=== PATIENT | male | born 1945 | race Asian ===

== ENCOUNTER 2023-01-17 21:24 | Inpatient (IN) | payer OTHER, MEDICAID ==
[~2023-01-17] VITALS: Ht 167.6 cm; Wt 56.2 kg
[2023-01-17 22:03] VITALS: BP_SYST 129
--- NOTE | 2023-01-17 22:12 | NUR ---
Pt placed in bed 5
--- NOTE | 2023-01-17 22:12 | NUR ---
LATANYA Ochoa at bedside examining patient.
[2023-01-17] MEDS ORDERED: NACL 0.9% 2,000 ML IV ONE (22:15)
[2023-01-17] MEDS ORDERED: PANTOPRAZOLE SODIUM 40 MG/VIAL (PROTONIX) IVP ONE (22:15)
--- NOTE | 2023-01-17 22:20 | NUR ---
DARWIN from [facility] C/O coffee ground emesis. Pt nonverbal but responds to stimuli VSS Able to make needs known Will continue to monitor
[2023-01-17 23:05] LABS: BASOPHILS % (AUTO) 0.1 % (0.0-2.0); HEMATOCRIT 40.1 % (36-54); HEMOGLOBIN 13.5 g/dL (14.0-18.0); LYMPHOCYTES # (AUTO) 0.7 K/uL (1.0-5.5); LYMPHOCYTES % (AUTO) 8.1 % (20.5-51.5); MEAN CORPUSCULAR HEMOGLOBIN 30 pg (27-31); MEAN CORPUSCULAR HGB CONC 34 % (32-36); MEAN CORPUSCULAR VOLUME 90 fL (79.0-98.0); MONOCYTES # (AUTO) 0.3 K/uL (0.0-1.0); NEUTROPHILS % (AUTO) 87.8 % (40.0-70.0); PLATELET COUNT (AUTO) 242 K/uL (130-430); RED BLOOD CELL COUNT(AUTO) 4.43 MIL/uL (4.2-6.2); RED CELL DISTRIBUTION WIDTH 14.3 % (9.0-15.0)
[2023-01-17] MEDS: PANTOPRAZOLE SODIUM 40 MG in NS 50 ML IV SCH (23:15)
[2023-01-17] MEDS: D5/0.45 NS 1,000 ML IV SCH (23:15)
[2023-01-17 23:17] LABS: ANION GAP 10 (5-15); CALCIUM 8.6 mg/dL (8.4-11.0); CHLORIDE 100 mmol/L (98-107); CREATININE 1.12 mg/dL (0.55-1.30); GLUCOSE 238 mg/dL (70-99); UREA NITROGEN, BLOOD 33 mg/dL (8-21)
[2023-01-17 23:22] LABS: ALANINE AMINOTRANSFERASE 30 U/L (12-78); ALBUMIN 3.2 g/dL (3.4-4.8); ASPARTATE AMINOTRANSFERASE 19 U/L (10-37); TOTAL BILIRUBIN 0.5 mg/dL (0.0-1.0)
--- NOTE | 2023-01-18 01:20 | NUR ---
Pt resting comfortably in bed Pt nonverbal but resposive to stimuli VSS Able to make needs known Will continue to monitor
--- NOTE | 2023-01-18 02:47 | NUR ---
Admit bed requested Patient will be admitted to care of . Admitted to TELEMETRY unit. Diagnosis UPPER GI BLEED Inpatient (Yes or No) YES Observation (Yes or No) NO Orientation concerns or request close to nursing station (Yes or No) NO Covid Status NEGATIVE On vent or bipap NO Isolation requirements NO Needs a sitter NO From Home (Yes or if No enter name of facility) YES Requires Dialysis (Yes or No) NO Med Rec Completed (Yes of No) YES
[2023-01-18 02:58] LABS: BILIRUBIN,URINE NEGATIVE (NEGATIVE); BLOOD, URINE NEGATIVE (NEGATIVE); CLARITY/URINE CLEAR (CLEAR); COLOR,URINE YELLOW (YELLOW); GLUCOSE,URINE 1+ (NEGATIVE); KETONES,URINE NEGATIVE (NEGATIVE); LEUKOCYTE ESTERASE ,URINE NEGATIVE (NEGATIVE); NITRITE, URINE NEGATIVE (NEGATIVE); PROTEIN URINE 1+ (NEGATIVE); UROBILINOGEN,URINE 0.2 (0.2-1.0)
[2023-01-18] MEDS ORDERED: LIP40 PO (02:59)
[2023-01-18] MEDS ORDERED: DOCU-144 PO (02:59)
[2023-01-18] MEDS ORDERED: ASPI-1393 PO (02:59)
[2023-01-18] MEDS ORDERED: MOM PO (02:59)
[2023-01-18] MEDS ORDERED: AMLO5TAB4 PO (02:59)
[2023-01-18] MEDS ORDERED: INSU100I26 SQ (02:59)
[2023-01-18] MEDS ORDERED: SSNOVOLOG SUBCUT (02:59)
[2023-01-18] MEDS ORDERED: ACET325T PO (02:59)
[2023-01-18 03:06] LABS: BACTERIA,URINE None Seen /HPF (None Seen); RBC,URINE 0-3 /HPF (0-3); WBC,URINE 0-3 /HPF (0-3)
[2023-01-18] MEDS ORDERED: NACL 0.9% 1,000 ML IV ONE (03:30)
[2023-01-18] MEDS ORDERED: VANCOMYCIN HCL 1 GM/NS PREMIX 250 ML IV ONE (03:30)
[2023-01-18] MEDS ORDERED: MEROPENEM 1 GM in NS 100 ML IV ONE (03:30)
[2023-01-18] MEDS ORDERED: VANCOMYCIN HCL 1000 MG/VIAL IV ONE (03:41)
[2023-01-18 04:40] VITALS: BP_SYST 142
[2023-01-18] MEDS ORDERED: PANTOPRAZOLE SODIUM 40 MG/VIAL (PROTONIX) ONE ×2 (05:04)
--- NOTE | 2023-01-18 05:05 | NUR ---
Endorsed Mello to Jeff ZHOU. Notified House supervsor
--- NOTE | 2023-01-18 05:06 | NUR ---
Patient will be admitted to tele unit. Will go to room 118A. Belongings list completed. Complete and up to date summary report printed. SBAR report to be given at bedside with opportunity for questions.
[2023-01-18] MEDS: PANTOPRAZOLE SODIUM 40 MG in NS 50 ML IV SCH ×4 (05:12→21:09)
[2023-01-18 06:26] VITALS: BP_SYST 142
[2023-01-18] MEDS ORDERED: D5W 1,000 ML IV PRN ×2 (07:30→15:30)
[2023-01-18] MEDS ORDERED: DEXTROSE 50% JECT 50 ML DISP.SYRIN IVP PRN ×2 (07:30→15:30)
[2023-01-18] MEDS ORDERED: GLUCOSE (DEXTROSE) ORAL GEL -Adults PO PRN ×2 (07:30→15:30)
[2023-01-18 08:00] VITALS: BP_SYST 139
[2023-01-18 10:38] LABS: BASOPHILS % (AUTO) 0.2 % (0.0-2.0); EOSINOPHILS % (AUTO) 0.1 % (0.0-4.0); HEMOGLOBIN 11.4 g/dL (14.0-18.0); LYMPHOCYTES # (AUTO) 1.5 K/uL (1.0-5.5); MEAN CORPUSCULAR HEMOGLOBIN 30 pg (27-31); MEAN CORPUSCULAR HGB CONC 33 % (32-36); MEAN CORPUSCULAR VOLUME 92 fL (79.0-98.0); MONOCYTES # (AUTO) 0.4 K/uL (0.0-1.0); MONOCYTES % (AUTO) 3.8 % (1.7-9.3); NEUTROPHILS # (AUTO) 8.1 K/uL (1.8-7.7); NEUTROPHILS % (AUTO) 80.9 % (40.0-70.0); PLATELET COUNT (AUTO) 193 K/uL (130-430); RED BLOOD CELL COUNT(AUTO) 3.79 MIL/uL (4.2-6.2); RED CELL DISTRIBUTION WIDTH 14.6 % (9.0-15.0)
--- NOTE | 2023-01-18 10:45 | NUR ---
Contacted Dr. Rodriguez and made aware regarding lactic acid 4.0. Waiting for new orders.
[2023-01-18 11:07] LABS: ANION GAP 8 (5-15); CALCIUM 7.7 mg/dL (8.4-11.0); CHLORIDE 106 mmol/L (98-107); GLUCOSE 234 mg/dL (70-99); UREA NITROGEN, BLOOD 23 mg/dL (8-21)
[2023-01-18 11:25] VITALS: BP_SYST 141
[2023-01-18] MEDS: D5/0.45 NS 1,000 ML IV SCH (11:45)
--- NOTE | 2023-01-18 11:55 | NUR ---
Received call from Dr. Michael MD acknowledged lactic acid 4.0 and gave order for Maxipime 1g Q12HRS. Order noted and carried out.
--- NOTE | 2023-01-18 14:05 | NUR ---
Patient's decision maker is the [employer] Public Guardian's Office [phone]. His public Guardian is Zaid Lockett [phone]. He will sign consents the patient needs. He is available Saturday-Saturday 8AM-5 PM.
[2023-01-18] MEDS ORDERED: ACETAMINOPHEN 325 MG TABLET PO PRN (15:30)
[2023-01-18] MEDS ORDERED: MILK OF MAGNESIA 30 ML UDC PO PRN (15:30)
[2023-01-18] MEDS ORDERED: INSULIN LISPRO SLIDING SCALE 100 UNITS/ML, 3 ML VIAL (humaLOG) SUBCUT PRN (15:30)
[2023-01-18 16:58] VITALS: BP_SYST 140
[2023-01-18] MEDS: PIPERACILLIN/TAZO 3.375/DEX-IS 50 ML IV SCH (17:09)
--- NOTE | 2023-01-18 19:24 | NUR ---
CONSULTATION PAGED/CALLED Reason for Consultation: LOW 02 Person Who was Notified: YAMEL Consulting Physician: DR. MUSA Physician President Specialty: PULMONARY Ordering Physician:
[2023-01-18 20:00] VITALS: BP_SYST 134
--- NOTE | 2023-01-18 20:00 | NUR ---
Met pt and pt's son( 15 years old) at bedside. Pt able to communicate with son. Pt speaks Moldovan.Denied any distress except nostril itching from O2 nasal cannula. O2 sat 98-99% with O2 4 L. Decreased O2 to 3l by RT.
[2023-01-18] MEDS: IPRATROPIUM BROM 0.5 MG/2.5 ML VIAL.NEB (ATROVENT) INH SCH (20:11)
[2023-01-18] MEDS: ALBUTEROL SULFATE 0.083% 2.5 MG/3 ML VIAL.NEB INH SCH (20:11)
[2023-01-18] MEDS ORDERED: CEFEPIME 1 GM in D5W 50 ML IV SCH (21:00)
[2023-01-18] MEDS: INSULIN REGULAR, HUMAN 100 UNITS/ML, 3 ML VIAL (humuLIN R) SUBCUT PRN (21:14)
[2023-01-19 00:17] VITALS: BP_SYST 128
[2023-01-19] MEDS: PIPERACILLIN/TAZO 3.375/DEX-IS 50 ML IV SCH ×4 (00:30→18:23)
[2023-01-19] MEDS: PANTOPRAZOLE SODIUM 40 MG in NS 50 ML IV SCH ×2 (01:20→06:03)
[2023-01-19] MEDS: D5/0.45 NS 1,000 ML IV SCH ×2 (03:31→18:03)
--- NOTE | 2023-01-19 05:49 | NUR ---
PT REMAINS STABLE. NOTICED OFF AND ON NONPRODUCTIVE COUGH. NO S/SX OF UGI BLEEDING. HAD 1 X BM- YELLOW/BROWN PASTY STOOL. NO S/SX OF BLEEDING. ON PROTONIX DRIP AT 10 ML/HR AND D51/2NS AT 80 ML/HR. ON O2 3L VIA NC.GIVEN ZOSYN IVPB EVERY 6 HR. SKIN DRY AND INTACT. NEED SPUTUM SPECIMEN. TELE- SR.
[2023-01-19] MEDS: IPRATROPIUM BROM 0.5 MG/2.5 ML VIAL.NEB (ATROVENT) INH SCH ×4 (07:13→20:40)
[2023-01-19] MEDS: ALBUTEROL SULFATE 0.083% 2.5 MG/3 ML VIAL.NEB INH SCH ×4 (07:14→20:40)
[2023-01-19 08:10] LABS: BASOPHILS % (AUTO) 0.4 % (0.0-2.0); EOSINOPHILS # (AUTO) 0.4 K/uL (0.0-0.4); EOSINOPHILS % (AUTO) 5.5 % (0.0-4.0); HEMATOCRIT 32.4 % (36-54); HEMOGLOBIN 10.8 g/dL (14.0-18.0); LYMPHOCYTES # (AUTO) 1.5 K/uL (1.0-5.5); MEAN CORPUSCULAR HEMOGLOBIN 30 pg (27-31); MEAN CORPUSCULAR HGB CONC 33 % (32-36); MEAN CORPUSCULAR VOLUME 90 fL (79.0-98.0); MONOCYTES # (AUTO) 0.5 K/uL (0.0-1.0); MONOCYTES % (AUTO) 7.4 % (1.7-9.3); NEUTROPHILS % (AUTO) 62.7 % (40.0-70.0); PLATELET COUNT (AUTO) 187 K/uL (130-430)
[2023-01-19 08:37] LABS: WHITE BLOOD COUNT (AUTO) 6.4 K/uL (4.8-10.8)
[2023-01-19] MEDS ORDERED: PANTOPRAZOLE SODIUM 40 MG/VIAL (PROTONIX) ONE (11:37)
[2023-01-19 14:20] LABS: ALANINE AMINOTRANSFERASE 27 U/L (12-78); ALBUMIN 2.4 g/dL (3.4-4.8); ANION GAP 8 (5-15); ASPARTATE AMINOTRANSFERASE 19 U/L (10-37); CALCIUM 7.7 mg/dL (8.4-11.0); CHLORIDE 103 mmol/L (98-107); CREATININE 0.81 mg/dL (0.55-1.30); GLUCOSE 149 mg/dL (70-99); TOTAL BILIRUBIN 0.4 mg/dL (0.0-1.0); UREA NITROGEN, BLOOD 11 mg/dL (8-21)
[2023-01-19] MEDS: DOCUSATE SODIUM 100 MG CAPSULE PO SCH (17:56)
[2023-01-19] MEDS: ATORVASTATIN 20 MG TABLET PO SCH (17:57)
[2023-01-19] MEDS: amLODIPine BESYLATE 5 MG TABLET PO SCH (17:59)
[2023-01-19 20:00] VITALS: BP_SYST 148
[2023-01-19] MEDS: PANTOPRAZOLE SODIUM 40 MG/VIAL (PROTONIX) IVP SCH (21:35)
[2023-01-20] VITALS: BP_SYST 132
[2023-01-20] MEDS: D5/0.45 NS 1,000 ML IV SCH ×2 (01:15→13:10)
[2023-01-20] MEDS: PIPERACILLIN/TAZO 3.375/DEX-IS 50 ML IV SCH ×4 (06:03→16:54)
[2023-01-20 07:29] LABS: BASOPHILS % (AUTO) 0.5 % (0.0-2.0); EOSINOPHILS # (AUTO) 0.4 K/uL (0.0-0.4); EOSINOPHILS % (AUTO) 6.9 % (0.0-4.0); HEMATOCRIT 30.9 % (36-54); HEMOGLOBIN 10.6 g/dL (14.0-18.0); LYMPHOCYTES # (AUTO) 1.3 K/uL (1.0-5.5); LYMPHOCYTES % (AUTO) 24.5 % (20.5-51.5); MEAN CORPUSCULAR HEMOGLOBIN 31 pg (27-31); MEAN CORPUSCULAR HGB CONC 34 % (32-36); MEAN CORPUSCULAR VOLUME 89 fL (79.0-98.0); MONOCYTES # (AUTO) 0.5 K/uL (0.0-1.0); MONOCYTES % (AUTO) 9.8 % (1.7-9.3); NEUTROPHILS # (AUTO) 3.1 K/uL (1.8-7.7); NEUTROPHILS % (AUTO) 58.3 % (40.0-70.0); PLATELET COUNT (AUTO) 208 K/uL (130-430); RED BLOOD CELL COUNT(AUTO) 3.47 MIL/uL (4.2-6.2); WHITE BLOOD COUNT (AUTO) 5.4 K/uL (4.8-10.8)
[2023-01-20] MEDS: ALBUTEROL SULFATE 0.083% 2.5 MG/3 ML VIAL.NEB INH SCH ×2 (07:32→11:16)
[2023-01-20] MEDS: IPRATROPIUM BROM 0.5 MG/2.5 ML VIAL.NEB (ATROVENT) INH SCH ×2 (07:32→11:16)
--- NOTE | 2023-01-20 07:40 | NUR ---
Closing Pt is resting in bed comfortably no s/s of any distress, no S/S of any SOB, Starks catheter patent and intact draining chris urine, draining via gravity, encourage pt to use call light for any assistance, call light within reach, bed at lowest position for safety.
[2023-01-20 08:00] VITALS: BP_SYST 129
[2023-01-20 09:02] LABS: ALANINE AMINOTRANSFERASE 27 U/L (12-78); ALBUMIN 2.5 g/dL (3.4-4.8); ANION GAP 11 (5-15); ASPARTATE AMINOTRANSFERASE 20 U/L (10-37); CALCIUM 8.2 mg/dL (8.4-11.0); CHLORIDE 102 mmol/L (98-107); CREATININE 0.91 mg/dL (0.55-1.30); GLUCOSE 150 mg/dL (70-99); TOTAL BILIRUBIN 0.5 mg/dL (0.0-1.0); UREA NITROGEN, BLOOD 6 mg/dL (8-21)
[2023-01-20] MEDS: ATORVASTATIN 20 MG TABLET PO SCH (09:55)
[2023-01-20] MEDS: DOCUSATE SODIUM 100 MG CAPSULE PO SCH (09:55)
[2023-01-20] MEDS: amLODIPine BESYLATE 5 MG TABLET PO SCH (09:55)
[2023-01-20] MEDS: PANTOPRAZOLE SODIUM 40 MG/VIAL (PROTONIX) IVP SCH ×2 (09:56→21:58)
--- NOTE | 2023-01-20 11:29 | NUR ---
Attempted to get sputum, but patient unable to spit enough at this point. made aware.
[2023-01-20 12:00] VITALS: BP_SYST 132
[2023-01-20] MEDS ORDERED: POTASSIUM CHLORIDE 40 MEQ in NS 250 ML IV ONE (12:00)
[2023-01-20] MEDS: INSULIN REGULAR, HUMAN 100 UNITS/ML, 3 ML VIAL (humuLIN R) SUBCUT PRN ×2 (12:32→17:02)
[2023-01-20 16:00] VITALS: BP_SYST 135
--- NOTE | 2023-01-20 17:45 | NUR ---
Dr. Rodriguez made aware of patient having one episode of elevated HR 180 bpm. Patient current HR is 89 BPM at the moment. Will continue to monitor.
--- NOTE | 2023-01-20 19:05 | NUR ---
Report given to night court magistrate RN for continuity of care. Patient in stable condition. No distress noted.
[2023-01-20 20:00] VITALS: BP_SYST 146
[2023-01-21] VITALS: BP_SYST 140
[2023-01-21] MEDS: PIPERACILLIN/TAZO 3.375/DEX-IS 50 ML IV SCH ×4 (01:14→18:01)
[2023-01-21 06:24] LABS: BASOPHILS % (AUTO) 0.6 % (0.0-2.0); EOSINOPHILS # (AUTO) 0.5 K/uL (0.0-0.4); EOSINOPHILS % (AUTO) 7.1 % (0.0-4.0); HEMATOCRIT 31.6 % (36-54); HEMOGLOBIN 10.7 g/dL (14.0-18.0); LYMPHOCYTES # (AUTO) 1.9 K/uL (1.0-5.5); MEAN CORPUSCULAR HEMOGLOBIN 30 pg (27-31); MEAN CORPUSCULAR HGB CONC 34 % (32-36); MEAN CORPUSCULAR VOLUME 89 fL (79.0-98.0); MONOCYTES # (AUTO) 0.6 K/uL (0.0-1.0); MONOCYTES % (AUTO) 9.6 % (1.7-9.3); NEUTROPHILS # (AUTO) 3.5 K/uL (1.8-7.7); NEUTROPHILS % (AUTO) 53.7 % (40.0-70.0); PLATELET COUNT (AUTO) 233 K/uL (130-430); RED BLOOD CELL COUNT(AUTO) 3.55 MIL/uL (4.2-6.2); RED CELL DISTRIBUTION WIDTH 14.3 % (9.0-15.0); WHITE BLOOD COUNT (AUTO) 6.5 K/uL (4.8-10.8)
[2023-01-21] MEDS: D5/0.45 NS 1,000 ML IV SCH ×2 (06:33→22:37)
[2023-01-21 07:00] LABS: ALANINE AMINOTRANSFERASE 15 U/L (12-78); ALBUMIN 2.6 g/dL (3.4-4.8); ANION GAP 7 (5-15); ASPARTATE AMINOTRANSFERASE 12 U/L (10-37); CHLORIDE 102 mmol/L (98-107); CREATININE 1.01 mg/dL (0.55-1.30); GLUCOSE 147 mg/dL (70-99); TOTAL BILIRUBIN 0.3 mg/dL (0.0-1.0); UREA NITROGEN, BLOOD 7 mg/dL (8-21)
[2023-01-21] MEDS: ALBUTEROL SULFATE 0.083% 2.5 MG/3 ML VIAL.NEB INH SCH ×3 (07:36→19:43)
[2023-01-21] MEDS: IPRATROPIUM BROM 0.5 MG/2.5 ML VIAL.NEB (ATROVENT) INH SCH ×3 (07:36→19:43)
[2023-01-21 08:00] VITALS: BP_SYST 139
--- NOTE | 2023-01-21 08:00 | NUR ---
opening note received pt alert, unable to assess orientation. pt has dementia and not responding verbally at this time. eyes open spontaneously. pleasant and cooperative with care. assessed, repositioned. does not appear in distress no discomfort. iv intact with fluid per orders. call light in reach. bed alarm on.
[2023-01-21] MEDS: DOCUSATE SODIUM 100 MG CAPSULE PO SCH (09:00)
[2023-01-21] MEDS: PANTOPRAZOLE SODIUM 40 MG/VIAL (PROTONIX) IVP SCH ×2 (09:42→22:29)
[2023-01-21] MEDS: ATORVASTATIN 20 MG TABLET PO SCH (09:43)
[2023-01-21] MEDS: amLODIPine BESYLATE 5 MG TABLET PO SCH (09:43)
[2023-01-21 10:20] VITALS: BP_SYST 139
--- NOTE | 2023-01-21 10:34 | NUR ---
paged Dr Rodriguez, spoke with Stephanie at the office
--- NOTE | 2023-01-21 10:37 | NUR ---
INFORMED REGARDING PATIENTS POTASSIUM 3.3 NEW ORDER RECEIVED
--- NOTE | 2023-01-21 10:39 | NUR ---
HIGH ALERT NOTE: Called Dr. Rodriguez back identified within the medical roster to verify physician authenticity.
[2023-01-21] MEDS ORDERED: POTASSIUM CHLORIDE 20 MEQ TAB.PRT.SR PO ONE ×2 (10:45→16:30)
[2023-01-21 11:15] VITALS: BP_SYST 147
[2023-01-21] MEDS: INSULIN REGULAR, HUMAN 100 UNITS/ML, 3 ML VIAL (humuLIN R) SUBCUT PRN ×3 (11:59→21:07)
[2023-01-21 14:55] LABS: ANION GAP 8 (5-15); CALCIUM 8.3 mg/dL (8.4-11.0); CHLORIDE 103 mmol/L (98-107); CREATININE 0.94 mg/dL (0.55-1.30); GLUCOSE 221 mg/dL (70-99); UREA NITROGEN, BLOOD 7 mg/dL (8-21)
[2023-01-21 15:30] VITALS: BP_SYST 146
--- NOTE | 2023-01-21 16:19 | NUR ---
HIGH ALERT NOTE: Dr. Hernández on floor, identified within the medical roster to verify physician authenticity.
--- NOTE | 2023-01-21 17:52 | NUR ---
family spoke with patients sons guardian. stated that son saw father on Saturday and the son tested positive for COVID today. Per Dr Rodriguez test for COVID rapid
[2023-01-21 20:00] VITALS: BP_SYST 140
--- NOTE | 2023-01-21 22:44 | NUR ---
01/21/23 Dietitian Recommendations *Continue on CCHO,60gms,Pureed Diet per MD Rx *Recommend Glucerna BID to help with meeting needs *Continue to monitor/evaluate weight trends, PO intake, GI, skin, labs Please refer to Nutrition Assessment for details RM, JAMEELN
[2023-01-22] VITALS: BP_SYST 136
[2023-01-22] MEDS: PIPERACILLIN/TAZO 3.375/DEX-IS 50 ML IV SCH ×5 (00:56→23:35)
[2023-01-22] MEDS: ALBUTEROL SULFATE 0.083% 2.5 MG/3 ML VIAL.NEB INH SCH ×4 (03:41→20:16)
[2023-01-22] MEDS: IPRATROPIUM BROM 0.5 MG/2.5 ML VIAL.NEB (ATROVENT) INH SCH ×4 (03:42→20:16)
[2023-01-22] MEDS: INSULIN REGULAR, HUMAN 100 UNITS/ML, 3 ML VIAL (humuLIN R) SUBCUT PRN ×4 (06:57→20:22)
[2023-01-22 07:24] LABS: BASOPHILS % (AUTO) 0.4 % (0.0-2.0); EOSINOPHILS # (AUTO) 0.4 K/uL (0.0-0.4); EOSINOPHILS % (AUTO) 5.2 % (0.0-4.0); HEMATOCRIT 33.3 % (36-54); LYMPHOCYTES # (AUTO) 1.9 K/uL (1.0-5.5); MEAN CORPUSCULAR HEMOGLOBIN 30 pg (27-31); MEAN CORPUSCULAR HGB CONC 33 % (32-36); MEAN CORPUSCULAR VOLUME 90 fL (79.0-98.0); MONOCYTES # (AUTO) 0.7 K/uL (0.0-1.0); MONOCYTES % (AUTO) 8.3 % (1.7-9.3); NEUTROPHILS # (AUTO) 5.3 K/uL (1.8-7.7); NEUTROPHILS % (AUTO) 63.1 % (40.0-70.0); PLATELET COUNT (AUTO) 265 K/uL (130-430); RED BLOOD CELL COUNT(AUTO) 3.69 MIL/uL (4.2-6.2); RED CELL DISTRIBUTION WIDTH 13.9 % (9.0-15.0); WHITE BLOOD COUNT (AUTO) 8.3 K/uL (4.8-10.8)
--- NOTE | 2023-01-22 07:28 | NUR ---
Closing Patient is resting in bed, no s/s of any discomfort, no S/S of any SOB, Starks catheter patent and intact draining yellow urine, draining via gravity, encourage pt to use call light for any assistance, visual checks every 2 hours, call light within reach, bed at lowest position for safety.
[2023-01-22 07:46] LABS: ANION GAP 8 (5-15); CALCIUM 8.2 mg/dL (8.4-11.0); CHLORIDE 101 mmol/L (98-107); CREATININE 0.88 mg/dL (0.55-1.30); GLUCOSE 165 mg/dL (70-99); UREA NITROGEN, BLOOD 9 mg/dL (8-21)
[2023-01-22 08:00] VITALS: BP_SYST 155
--- NOTE | 2023-01-22 08:00 | NUR ---
Start of shift. Pt resting in bed, no SOB/resp distress or pain/discomfort was noted at this time. IV in left forearm and right forearm intact and patent at this time. Tele unit attached and intact at this time. Call light within reach.
[2023-01-22] MEDS: DOCUSATE SODIUM 100 MG CAPSULE PO SCH ×2 (08:42→08:45)
[2023-01-22] MEDS: PANTOPRAZOLE SODIUM 40 MG/VIAL (PROTONIX) IVP SCH ×2 (08:42→21:52)
[2023-01-22] MEDS: ATORVASTATIN 20 MG TABLET PO SCH (08:42)
[2023-01-22] MEDS: amLODIPine BESYLATE 5 MG TABLET PO SCH (08:43)
[2023-01-22 11:30] VITALS: BP_SYST 138
[2023-01-22] MEDS: D5/0.45 NS 1,000 ML IV SCH (14:30)
[2023-01-22 15:30] VITALS: BP_SYST 127
[2023-01-22] MEDS ORDERED: POTASSIUM CHLORIDE 20 MEQ TAB.PRT.SR PO ONE (17:15)
--- NOTE | 2023-01-22 17:30 | NUR ---
NOTE Tele unit was dc'd and returned to media monitor.
--- NOTE | 2023-01-22 18:20 | NUR ---
Note Pt resting in bed. No needs noted at this time. Pt being assisted with his dinner. IV intact and patent infusing IVF's well in right forearm. Call light within reach. Bed alarm on and side rails raised at this time, bed in low position all shift.
--- NOTE | 2023-01-22 19:30 | NUR ---
Opening Note Pt lying in bed with breathing treatment. PT's O2 Sat 100%. crackle Lung sound on right upper lobe. IV intact and patent infusing IVF's well in left wrist. Call light within reach. Bed alarm on and lowest position. safety checks in place. continue to monitor.
[2023-01-22 20:00] VITALS: BP_SYST 136
--- NOTE | 2023-01-22 23:30 | NUR ---
ROUNDING NOTE PT LYING BED AND EYES CLOSED. PT RESPONDED TO CALLING HIS NAME BUT NOT ABLE TO COMMUNICATE. OLIVAS CATHETER IN PLACE AND PATENT. NO BOWEL MOVEMENT AT THIS TIME. NO S/S OF DISTRESS OR PAIN. BREATHING EVEN AND NONLABORED. SAFETY CHECKS IN PLACE. BED ALARM ON AND LOWEST POSITION. CONTINUE TO MONITOR.
[2023-01-23] VITALS: BP_SYST 141
--- NOTE | 2023-01-23 00:53 | NUR ---
OLIVAS CATHETER CARE. EMPTYING OLIVAS BAG. MEASURED 450 cc. URINE COLOR IS DARK YELLOW. TUBE IS PATENT AND SECURED IN LOW POSITION. PT'S BREATHING EVEN AND NONLABORED. CONTINUE TO MONITOR.
[2023-01-23] MEDS: IPRATROPIUM BROM 0.5 MG/2.5 ML VIAL.NEB (ATROVENT) INH SCH ×4 (01:00→19:31)
[2023-01-23] MEDS: ALBUTEROL SULFATE 0.083% 2.5 MG/3 ML VIAL.NEB INH SCH ×4 (01:00→19:31)
--- NOTE | 2023-01-23 02:00 | NUR ---
ROUNDING NOTE PT HAD NON PRODUCTIVE COUGH. O2 SAT 95%. EMPTYING OLIVAS BAG. MEASURED 200 cc. URINE IS REDDISH . TUBE IS PATENT AND SECURED IN LOW POSITION. PT'S BREATHING EVEN AND NONLABORED. CHANGED POSITION WITH PILLOW SUPPORT. CONTINUE TO MONITOR.
[2023-01-23] MEDS: PIPERACILLIN/TAZO 3.375/DEX-IS 50 ML IV SCH ×2 (06:14→11:58)
[2023-01-23 06:58] LABS: BASOPHILS # (AUTO) 0.1 K/uL (0.0-0.2); BASOPHILS % (AUTO) 0.7 % (0.0-2.0); EOSINOPHILS # (AUTO) 0.5 K/uL (0.0-0.4); EOSINOPHILS % (AUTO) 5.2 % (0.0-4.0); HEMATOCRIT 32.6 % (36-54); HEMOGLOBIN 10.8 g/dL (14.0-18.0); LYMPHOCYTES # (AUTO) 2.1 K/uL (1.0-5.5); LYMPHOCYTES % (AUTO) 23.5 % (20.5-51.5); MEAN CORPUSCULAR HEMOGLOBIN 30 pg (27-31); MEAN CORPUSCULAR HGB CONC 33 % (32-36); MEAN CORPUSCULAR VOLUME 90 fL (79.0-98.0); MONOCYTES # (AUTO) 0.7 K/uL (0.0-1.0); MONOCYTES % (AUTO) 7.3 % (1.7-9.3); NEUTROPHILS # (AUTO) 5.7 K/uL (1.8-7.7); NEUTROPHILS % (AUTO) 63.3 % (40.0-70.0); PLATELET COUNT (AUTO) 288 K/uL (130-430); RED BLOOD CELL COUNT(AUTO) 3.61 MIL/uL (4.2-6.2); RED CELL DISTRIBUTION WIDTH 14.2 % (9.0-15.0)
--- NOTE | 2023-01-23 06:59 | NUR ---
CLOSING NOTE PT LYING IN BED AND EYES CLOSED. BREATHING EVEN AND NONLABORED. NO S/S OF DISTRESS OR PAIN. MORNING BLOOD GLUCOSE 143. OLIVAS CATHETER IN PLACE AND PATENT. URINE COLOR STILL REDDISH. BED ALARM ON AND LOWEST POSITION. CALL LIGHT WITHIN REACH. ENDORSED TO DAY SHIFT NURSE.
[2023-01-23 07:24] LABS: ANION GAP 6 (5-15); CALCIUM 8.4 mg/dL (8.4-11.0); CHLORIDE 98 mmol/L (98-107); CREATININE 0.87 mg/dL (0.55-1.30); GLUCOSE 167 mg/dL (70-99); UREA NITROGEN, BLOOD 6 mg/dL (8-21)
[2023-01-23 08:03] VITALS: BP_SYST 162
[2023-01-23] MEDS: ATORVASTATIN 20 MG TABLET PO SCH (08:55)
[2023-01-23] MEDS: DOCUSATE SODIUM 100 MG CAPSULE PO SCH (08:55)
[2023-01-23] MEDS: amLODIPine BESYLATE 5 MG TABLET PO SCH (08:55)
[2023-01-23] MEDS: D5/0.45 NS 1,000 ML IV SCH (08:56)
[2023-01-23] MEDS: PANTOPRAZOLE SODIUM 40 MG/VIAL (PROTONIX) IVP SCH ×2 (08:56→20:19)
[2023-01-23] MEDS: INSULIN REGULAR, HUMAN 100 UNITS/ML, 3 ML VIAL (humuLIN R) SUBCUT PRN ×2 (11:58→17:55)
[2023-01-23 12:04] VITALS: BP_SYST 167
[2023-01-23 16:31] VITALS: BP_SYST 159
--- NOTE | 2023-01-23 17:11 | NUR ---
Patient accepted at [facility] room 37B- Number for report [phone]. Ambulance transport will be at 8 PM by [facility]
--- NOTE | 2023-01-23 18:21 | NUR ---
This teletypewriter installer(primary RN), called [facility] #[id number] and gave report to nurse Roselyn PRADO on patient status. No concerns voiced.
[2023-01-23 19:06] VITALS: BP_SYST 159
[2023-01-23 20:23] VITALS: BP_SYST 137
== END 2023-01-23 23:12 | DRG 871 ==
LOC: SED 21:24 → SMU 23:09 → STU 01-18 23:14 → SMU 01-22 17:32
PROVIDERS: ADMIT Internal Medicine; ATTEND Internal Medicine
DX: A41.9 Sepsis, unspecified organism (principal); J18.9 Pneumonia, unspecified organism; J96.21 Acute and chronic respiratory failure with hypoxia; J44.0 Chronic obstructive pulmonary disease with (acute) lower respiratory infection; K92.0 Hematemesis; K92.2 Gastrointestinal hemorrhage, unspecified; E11.9 Type 2 diabetes mellitus without complications; F03.90 Unspecified dementia, unspecified severity, without behavioral disturbance, psychotic disturbance, mood disturbance, and anxiety; I10 Essential (primary) hypertension; K21.9 Gastro-esophageal reflux disease without esophagitis; Z20.822 Contact with and (suspected) exposure to COVID-19; F41.9 Anxiety disorder, unspecified; E78.5 Hyperlipidemia, unspecified; D64.9 Anemia, unspecified; R13.10 Dysphagia, unspecified; Z79.4 Long term (current) use of insulin; Z86.16 Personal history of COVID-19; Z86.73 Personal history of transient ischemic attack (TIA), and cerebral infarction without residual deficits
CPT/HCPCS: 36415; 36600; 71045; 80048; 80053; 81000; 82140; 82803-TC; 83605; 83735; 83880; 84443; 85025; 86886; 86900; 86901; 87040; 87081; 93005; 94640; 94760; 96361; 96365; 96375; 99285; C9113; G0378; J0692; J1815; J2185; J2543; J3370; J3480; J7050; J7060; J7613